=== PATIENT | female | born 1950 | race Caucasian/White ===

== ENCOUNTER 2022-08-11 12:56 | Emergency (ER) | payer OTHER, MEDICARE ==
[~2022-08-11] VITALS: Ht 175 cm; Wt 100.0 kg
[2022-08-11] MEDS ORDERED: SUCCINYLCHOLINE INJ 100 MG/5 ML SYR/VIAL INJ ONE (13:01)
[2022-08-11] MEDS ORDERED: EPINEPHrine 0.1 MG/ML 10 ML (HOSPIRA) SYR INJ ONE (13:01)
[2022-08-11] MEDS ORDERED: fentaNYL INJ 100 MCG/2 ML AMP IV ONE (13:01)
[2022-08-11] MEDS ORDERED: MIDAZOLAM 5 MG/5 ML (VERSED) VIAL INJ ONE (13:01)
[2022-08-11] MEDS ORDERED: ROCURONIUM 10 MG/ML 5 ML SYRINGE IV ONE (13:01)
[2022-08-11] MEDS ORDERED: ATROPINE INJECTION 1 MG/10 ML SYR (ABBOTT) INJ ONE (13:01)
[2022-08-11] MEDS ORDERED: fentaNYL INJ 100 MCG/2 ML AMP ONE (13:03)
[2022-08-11] MEDS ORDERED: LIDOCAINE/EPI 2% 1:200,00 (XYLOCAINE) 10 ML VIAL ONE (13:08)
[2022-08-11 13:13] LABS: HEMATOCRIT 35 % (35-52); HEMOGLOBIN 11.2 g/dL (11.5-16.0); MEAN CORPUSCULAR HEMOGLOBIN 27 pg (25-34); MEAN CORPUSCULAR HGB CONC 32 g/dL (32-36); MEAN CORPUSCULAR VOLUME 84 fL (80-99); MEAN PLATELET VOLUME 11.2 fL (9.0-12.2); PLATELET COUNT 230 10^3/uL (130-400)
[2022-08-11] MEDS ORDERED: TRANEXAMIC ACID 100 MG/ML 10 ML INJECTION ONE ×2 (13:17→13:55)
[2022-08-11] MEDS ORDERED: NS (IVPB) 50 ML ONE (13:18)
[2022-08-11 13:25] LABS: ALBUMIN 3.4 GM/DL (3.2-4.5); CHLORIDE 102 MMOL/L (98-107); POTASSIUM 2.8 MMOL/L (3.6-5.0); SODIUM 138 MMOL/L (135-145)
[2022-08-11 13:26] LABS: CALCIUM 8.4 MG/DL (8.5-10.1)
[2022-08-11 13:26] LABS: AMPHETAMINE SCREEN, URINE NEGATIVE (NEGATIVE); BARBITURATE SCREEN URINE NEGATIVE (NEGATIVE); BENZODIAZEPINES SCREEN URINE NEGATIVE (NEGATIVE); CANNABINOID SCREEN, URINE NEGATIVE (NEGATIVE); COCAINE SCREEN URINE NEGATIVE (NEGATIVE); METHADONE STAT NEGATIVE (NEGATIVE); OPIATE SCREEN URINE NEGATIVE (NEGATIVE); OXYCODONE STAT NEGATIVE (NEGATIVE); PROPOXYPHENE STAT NEGATIVE (NEGATIVE); TRICYCLIC ANTIDEPRESSANTS SCRE NEGATIVE (NEGATIVE)
[2022-08-11 13:27] LABS: GLUCOSE 303 MG/DL (70-105)
[2022-08-11 13:28] LABS: CARBON DIOXIDE 22 MMOL/L (21-32); TOTAL PROTEIN 6.2 GM/DL (6.4-8.2)
[2022-08-11 13:29] LABS: BILIRUBIN,TOTAL 0.7 MG/DL (0.1-1.0)
[2022-08-11 13:31] LABS: ALKALINE PHOSPHATASE 43 U/L (40-136); CREATININE SERUM 1.38 MG/DL (0.60-1.30); GFR ESTIMATED 41; PHOSPHORUS 3.8 MG/DL (2.3-4.7)
[2022-08-11 13:32] LABS: BUN/CREATININE RATIO 14
[2022-08-11 13:33] LABS: BILIRUBIN,DIRECT 0.3 MG/DL (0.0-0.3); BILIRUBIN,INDIRECT 0.4 MG/DL
[2022-08-11 13:34] LABS: ALANINE AMINOTRANSFERASE 909 U/L (0-55); MAGNESIUM 1.4 MG/DL (1.6-2.4)
[2022-08-11 13:40] LABS: FIBRINOGEN 357 MG/DL (221-496); INR 1.2 (0.8-1.4); PARTIAL THROMBOPLASTIN TIME 33 SEC (24-35); PROTHROMBIN TIME PATIENT 15.7 SEC (12.2-14.7)
[2022-08-11] MEDS ORDERED: NS IV 1000 ML 1,000 ML ONE (13:43)
[2022-08-11] MEDS ORDERED: NS (IVPB) 100 ML ONE (13:55)
[2022-08-11 13:57] LABS: FIBRIN DEGRADATION PRODUCTS > 20.00 UG/ML (0.00-0.49)
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
[2022-08-11 15:35] VITALS: BP 84/49
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
== END 2022-08-11 15:35 | disposition short-term general hospital (02) ==
LOC: ER 13:00
DX: S22.5XXA Flail chest, initial encounter for closed fracture (principal); S27.2XXA Traumatic hemopneumothorax, initial encounter; S05.11XA Contusion of eyeball and orbital tissues, right eye, initial encounter; S60.211A Contusion of right wrist, initial encounter; I46.9 Cardiac arrest, cause unspecified; E11.9 Type 2 diabetes mellitus without complications; Z79.4 Long term (current) use of insulin; V49.50XA Passenger injured in collision with unspecified motor vehicles in traffic accident, initial encounter; Y92.410 Unspecified street and highway as the place of occurrence of the external cause
CPT/HCPCS: 51702; 71045; 80048; 80076; 80306; 82947; 83605; 83735; 84100; 84703; 85027; 85379; 85384; 85610; 85730; 86850; 86900; 86901; 86920; 99291; 99292; G0390; G0480; P9016; P9017; 36415; 80320